=== PATIENT | female | born 1985 | race Caucasian/White ===

== ENCOUNTER 2019-08-30 14:04 | Emergency (ER) | payer OTHER ==
[~2019-08-30] VITALS: Ht 170.1 cm; Wt 81.6 kg
[~2019-08-30 14:04] MED LIST: ANAPROX DS550 MG PO; AVPAK AZITHROM250 M1 PO; BACTRIM DS 8001 TA1 PO; CIPRO500 MG PO; CLARITIN10 MG PO; DOXYCYCLINE MO100 MG PO; FLONASE ALLERG9.9 ML NAS; Motrin,Rufen800 MG PO; PREDNISONE10 MG PO; PROZAC40 M1 PO; PYRIDIUM200 M1 PO; ROBITUSSIN DM 105 ML PO; SERTRALINE HYDR25 MG PO; SERTRALINE HYDR50 MG PO; ULTRAM50 MG PO; VICODIN 5/500 505 MG PO; ZOFRAN ODT4 MG SL; ZOFRAN4 MG PO; ZOLOFT50 MG PO
[2019-08-30] MEDS ORDERED: IBUPROFEN600 MG PO ×2 (15:19→16:26)
[2019-08-30] MEDS ORDERED: TRAMADOL HCL50 MG PO (16:26)
== END 2019-08-30 16:43 | disposition home or self-care (01) ==
LOC: ED 14:04
DX: S92.511A Displaced fracture of proximal phalanx of right lesser toe(s), initial encounter for closed fracture (principal); F41.9 Anxiety disorder, unspecified; F32.9 Major depressive disorder, single episode, unspecified; Z88.8 Allergy status to other drugs, medicaments and biological substances; Z79.899 Other long term (current) drug therapy; W22.8XXA Striking against or struck by other objects, initial encounter; Y93.89 Activity, other specified; Y92.89 Other specified places as the place of occurrence of the external cause; Y99.8 Other external cause status

== ENCOUNTER 2019-09-19 21:48 | Emergency (ER) | payer OTHER ==
[~2019-09-19] VITALS: Ht 170.1 cm; Wt 79.4 kg
[~2019-09-19 21:48] MED LIST changes: +IBUPROFEN600 MG PO; +TRAMADOL HCL50 MG PO
[2019-09-19 22:27] LABS: BASO # 0.1 10*3/uL (0.0-0.1); BASO % 0.5 % (0.0-1.0); EOS # 0.1 10*3/uL (0.0-0.4); EOS % 0.6 % (1.0-4.0); HEMATOCRIT 36.6 % (37.0-47.0); LYMPH # 1.8 10*3/uL (1.3-4.4); LYMPH % 16.3 % (27.0-41.0); MEAN CELL VOLUME 90.8 fl (81.0-99.0); MEAN CORPUSCULAR HGB CONC 35.2 g/dl (33.0-37.0); MEAN PLATELET VOLUME 10.3 fl (9.6-12.3); MONO # 0.6 10*3/uL (0.1-1.0); MONO % 5.7 % (3.0-9.0); NEUT # 8.2 10*3/uL (2.3-7.9); NEUT % 76.5 % (47.0-73.0); PLATELET COUNT AUTOMATED 303 10*3/uL (130-400); RED BLOOD COUNT 4.03 10*6/uL (4.10-5.10); RED CELL DISTRI WIDTH 13.1 % (0-14.5); WHITE BLOOD COUNT 10.7 10*3/uL (4.8-10.8)
[2019-09-19 22:36] LABS: ACT PARTIAL THROMBO TIME 22.2 SECONDS (20.0-32.1)
[2019-09-19 22:41] LABS: ALKALINE PHOSPHATASE 60 U/L (45-117); BUN 18 mg/dl (7-24); CHLORIDE 110 mmol/L (98-107); CREATININE 1.04 mg/dL (0.55-1.02); LIPASE 69 U/L (73-393); POTASSIUM 3.7 mmol/L (3.5-5.1); SGOT/AST 19 IU/L (3-35); SGPT/ALT 19 U/L (12-78); SODIUM 139 mmol/L (136-145); TOTAL PROTEIN 7.9 gm/dL (6.4-8.2)
[2019-09-20] MEDS ORDERED: PHENERGAN25 M3 PO (00:56)
== END 2019-09-20 02:40 | disposition home or self-care (01) ==
LOC: ED 21:48
PROVIDERS: Nurse Practitioner Family
DX: A08.4 Viral intestinal infection, unspecified (principal); F17.200 Nicotine dependence, unspecified, uncomplicated; Z88.8 Allergy status to other drugs, medicaments and biological substances; Z79.899 Other long term (current) drug therapy

== ENCOUNTER 2019-11-10 20:28 | Emergency (ER) | payer OTHER ==
[~2019-11-10] VITALS: Ht 170.1 cm; Wt 77.1 kg
[~2019-11-10 20:28] MED LIST changes: +PHENERGAN25 M3 PO
[2019-11-10 21:27] LABS: BASO # 0.1 10*3/uL (0.0-0.1); BASO % 0.3 % (0.0-1.0); EOS % 0.1 % (1.0-4.0); HEMATOCRIT 37.8 % (37.0-47.0); LYMPH # 1.5 10*3/uL (1.3-4.4); MEAN CELL VOLUME 94.3 fl (81.0-99.0); MEAN CORPUSCULAR HGB 31.9 pg (27.0-31.0); MEAN CORPUSCULAR HGB CONC 33.9 g/dl (33.0-37.0); MEAN PLATELET VOLUME 10.6 fl (9.6-12.3); MONO # 0.5 10*3/uL (0.1-1.0); MONO % 3.2 % (3.0-9.0); NEUT # 14.3 10*3/uL (2.3-7.9); PLATELET COUNT AUTOMATED 298 10*3/uL (130-400); RED BLOOD COUNT 4.01 10*6/uL (4.10-5.10); WHITE BLOOD COUNT 16.4 10*3/uL (4.8-10.8)
[2019-11-10 21:33] LABS: BILIRUBIN NEGATIVE (NEGATIVE); BLOOD NEGATIVE (NEGATIVE); CLARITY CLEAR (CLEAR); COLOR YELLOW (YELLOW); GLUCOSE NEGATIVE (NEGATIVE); KETONE 3+ (NEGATIVE); PH 8.5 (5.0-9.0)
[2019-11-10 21:34] LABS: BACTERIA 1+; LEUKO ESTERASE NEGATIVE (NEGATIVE); NITRITE NEGATIVE (NEGATIVE); RBC 0-2 rbc/hpf (0-2); UROBILINOGEN < 0.2 E.U./dl (0.2-1.0)
[2019-11-10 21:43] LABS: ALBUMIN 3.9 gm/dl (3.1-4.5); ALKALINE PHOSPHATASE 61 U/L (45-117); BUN 10 mg/dl (7-24); CHLORIDE 110 mmol/L (98-107); CREATININE 1.04 mg/dL (0.55-1.02); LIPASE 57 U/L (73-393); POTASSIUM 3.7 mmol/L (3.5-5.1); SGOT/AST 9 IU/L (3-35); SGPT/ALT 14 U/L (12-78); SODIUM 140 mmol/L (136-145); TOTAL PROTEIN 7.7 gm/dL (6.4-8.2)
[2019-11-11 01:10] LABS: URINE AMPHETAMINES < 1000 (1000ng/ml); URINE BARBITURATES < 200 (200ng/ml); URINE BENZODIAZEPINES < 200 (200ng/ml); URINE CANNABINOIDS (THC) > 50 (50ng/ml); URINE COCAINE > 300 (300ng/ml); URINE METHADONE < 300 (300ng/ml); URINE OPIATES < 300 (300ng/ml)
[2019-11-11 01:11] LABS: URINE PHENCYCLIDINE < 25 (25ng/ml)
== END 2019-11-11 01:10 | disposition home or self-care (01) ==
LOC: ED 20:28
PROVIDERS: Emergency Medicine
DX: R11.10 Vomiting, unspecified (principal); F32.9 Major depressive disorder, single episode, unspecified; F41.9 Anxiety disorder, unspecified; F17.200 Nicotine dependence, unspecified, uncomplicated; Z79.899 Other long term (current) drug therapy

== ENCOUNTER 2019-12-16 03:43 | Observation (INO) | payer OTHER ==
[~2019-12-16] VITALS: Ht 170.1 cm; Wt 75.3 kg
[2019-12-16 03:47] VITALS: BP 159/82
[2019-12-16 04:17] LABS: BASO # 0.1 10*3/uL (0.0-0.1); BASO % 0.5 % (0.0-1.0); EOS # 0.1 10*3/uL (0.0-0.4); EOS % 0.3 % (1.0-4.0); HEMATOCRIT 41.5 % (37.0-47.0); LYMPH % 14.4 % (27.0-41.0); MEAN CELL VOLUME 95.4 fl (81.0-99.0); MEAN CORPUSCULAR HGB 31.7 pg (27.0-31.0); MEAN CORPUSCULAR HGB CONC 33.3 g/dl (33.0-37.0); MEAN PLATELET VOLUME 11.2 fl (9.6-12.3); MONO # 1.5 10*3/uL (0.1-1.0); MONO % 6.9 % (3.0-9.0); NEUT # 16.2 10*3/uL (2.3-7.9); NEUT % 77.5 % (47.0-73.0); PLATELET COUNT AUTOMATED 276 10*3/uL (130-400); RED BLOOD COUNT 4.35 10*6/uL (4.10-5.10); RED CELL DISTRI WIDTH 13.1 % (0-14.5)
[2019-12-16 04:32] LABS: ALBUMIN 4.1 gm/dl (3.1-4.5); CREATININE 1.25 mg/dL (0.55-1.02); POTASSIUM 3.2 mmol/L (3.5-5.1); TOTAL PROTEIN 8.2 gm/dL (6.4-8.2)
[2019-12-16 04:43] LABS: BILIRUBIN NEGATIVE (NEGATIVE); BLOOD TRACE-INTACT (NEGATIVE); CLARITY SL CLOUDY (CLEAR); COLOR YELLOW (YELLOW); GLUCOSE NEGATIVE (NEGATIVE); KETONE NEGATIVE (NEGATIVE); LEUKO ESTERASE NEGATIVE (NEGATIVE); NITRITE NEGATIVE (NEGATIVE); UROBILINOGEN 0.2 E.U./dl (0.2-1.0)
[2019-12-16 04:48] LABS: EPITHELIAL CELLS TNTC; URINE AMPHETAMINES < 1000 (1000ng/ml); URINE BARBITURATES < 200 (200ng/ml); URINE BENZODIAZEPINES < 200 (200ng/ml); URINE CANNABINOIDS (THC) > 50 (50ng/ml); URINE COCAINE > 300 (300ng/ml); URINE METHADONE < 300 (300ng/ml); URINE OPIATES < 300 (300ng/ml)
[2019-12-16 04:49] LABS: URINE PHENCYCLIDINE < 25 (25ng/ml)
--- NOTE | 2019-12-16 05:37 | NUR ---
PT RESTING COMFORTABLY ON COT AT THIS TIME. NO DISTRESS NOTED. WILL CONTINUE TO MONITOR.
--- NOTE | 2019-12-16 06:07 | NUR ---
PT VOMITING AT THIS TIME. DR FERNANDEZ TO ADMIT PT. PT DENIES WOUNDS AT THIS TIME. UNABLE TO GET GOOD EVALUATION D/T VOMITING.
[2019-12-16 06:14] VITALS: BP 160/79
--- NOTE | 2019-12-16 07:09 | NUR ---
REPORT FROM [facility], [place]
--- NOTE | 2019-12-16 07:40 | NUR ---
Time: 739 A 34 year old FEMALE admitted to under services of MARCELO GRANT DO. Pt. arrived via bed from ER. Chief complaint: VOMITING SINCE SUNDAY. NIYAH DELUNA
--- NOTE | 2019-12-16 07:51 | NUR ---
PT MEDICATED WITH PHENERGAN AT THIS TIME PER ORDER FOR COMPLAINTS OF NAUSEA/VOMITING. WILL MONITOR.
--- NOTE | 2019-12-16 08:51 | NUR ---
PER PATIENT, PRN MEDICATION HAS BEEN EFFECTIVE.
--- NOTE | 2019-12-16 09:00 | NUR ---
[employer] [facility] in to talk to patient. Patient states lives at home with fiance and children. There are no steps in the home. Physician: khalif nino [facility] Home health services: none Patient's level of ADLs: INDEPENDENT Patient has working utilities: all working DME: none Follow-up physician's appointment after d/c: will be made by hospitalist nurse director upon discharge Does patient want to access PORTAL?: no Discharge plan discussed with patient, she lives at home with family, is independent in adls and ambulation, drives, she states she will return home when discharged and denies any home needs, case management will follow. EDGAR FRANK
--- NOTE | 2019-12-16 09:30 | NUR ---
SPOKE WITH AT THIS TIME AND ORDER OBTAINED FOR SHAUNA MIKE.
[2019-12-16] MEDS ORDERED: PROZAC20 MG PO (09:40)
[2019-12-16 12:00] VITALS: BP 135/66
--- NOTE | 2019-12-16 15:28 | NUR ---
PT REQUESTING NAUSEA MEDICATION ; GIVEN PHENERGAN PER ORDER. WILL MONITOR FOR EFFECTIVENESS.
[2019-12-16 16:00] VITALS: BP 138/96
--- NOTE | 2019-12-16 16:28 | NUR ---
PER PATIENT, PHENERGAN WAS EFFECTIVE. CALL LIGHT IN REACH.
[2019-12-16 20:00] VITALS: BP 131/72
--- NOTE | 2019-12-16 22:17 | NUR ---
PT. GIVEN ZOFRAN ORDERED AT 2053 FOR COMPLAINTS OF NAUSEA, PT. STATED EFFECTIVE. ERIC DENISE RN
[2019-12-17] VITALS: BP 102/57
[2019-12-17 06:25] LABS: BASO % 0.3 % (0.0-1.0); EOS # 0.1 10*3/uL (0.0-0.4); EOS % 0.7 % (1.0-4.0); HEMATOCRIT 36.5 % (37.0-47.0); LYMPH # 2.7 10*3/uL (1.3-4.4); LYMPH % 26.7 % (27.0-41.0); MEAN CELL VOLUME 96.3 fl (81.0-99.0); MEAN CORPUSCULAR HGB 32.2 pg (27.0-31.0); MEAN CORPUSCULAR HGB CONC 33.4 g/dl (33.0-37.0); MEAN PLATELET VOLUME 10.4 fl (9.6-12.3); MONO # 0.9 10*3/uL (0.1-1.0); MONO % 9.2 % (3.0-9.0); NEUT # 6.3 10*3/uL (2.3-7.9); NEUT % 62.9 % (47.0-73.0); PLATELET COUNT AUTOMATED 241 10*3/uL (130-400); RED BLOOD COUNT 3.79 10*6/uL (4.10-5.10)
[2019-12-17 06:45] LABS: ALBUMIN 3.2 gm/dl (3.1-4.5); BUN 18 mg/dl (7-24); CHLORIDE 110 mmol/L (98-107); POTASSIUM 3.7 mmol/L (3.5-5.1); SGOT/AST 14 IU/L (3-35); SODIUM 139 mmol/L (136-145)
[2019-12-17 06:57] LABS: ALKALINE PHOSPHATASE 59 U/L (45-117); SGPT/ALT 19 U/L (12-78); THYROID STIM HORMONE (HS) 0.333 uIU/ml (0.358-4.75); TOTAL PROTEIN 6.7 gm/dL (6.4-8.2)
[2019-12-17 08:00] VITALS: BP 119/80
--- NOTE | 2019-12-17 09:00 | NUR ---
case management visits with patient, she states she will return home when discharged and denies any home needs
--- NOTE | 2019-12-17 09:52 | NUR ---
pt medicated with prn zofran after one episode of nausea with vomitting after trying clear liquids for breakfast.
--- NOTE | 2019-12-17 10:40 | NUR ---
Pt. expressed wish to go to another hospital/ Shaking and weeping, face is flushed. When asked if she would want to wait and first speak to her physician she stated " I just want to go to another hospital " Syd Lopes was notified of pt. wishes and stated she would like to see her before discharge.
--- NOTE | 2019-12-17 10:54 | NUR ---
Medicated for persistant Nausea w/ vomiting. Syd Lopes in to [facility] and pt. is agreeable to remain in this hospital.
--- NOTE | 2019-12-17 14:06 | NUR ---
PT LEFT AMA.
[2019-12-17] MEDS ORDERED: ZOFRAN4 MG PO (15:21)
[2019-12-17] MEDS ORDERED: PROTONIX40 MG PO (15:21)
[2019-12-17] MEDS ORDERED: CARAFATE1 GM/10 ML PO (15:21)
== END 2019-12-17 14:06 | disposition left against medical advice (07) ==
LOC: ED 03:43 → 4E 06:14 → EDHOLD 06:14 → 4E 06:14
PROVIDERS: Emergency Medicine; Student in an Organized Health Care Education/Training Program; ADMIT Student in an Organized Health Care Education/Training Program
DX: R11.2 Nausea with vomiting, unspecified (principal); E86.0 Dehydration; N17.0 Acute kidney failure with tubular necrosis; E87.2 Acidosis; D72.829 Elevated white blood cell count, unspecified; R03.0 Elevated blood-pressure reading, without diagnosis of hypertension; K29.70 Gastritis, unspecified, without bleeding; R73.9 Hyperglycemia, unspecified; F14.90 Cocaine use, unspecified, uncomplicated; F12.90 Cannabis use, unspecified, uncomplicated; F17.200 Nicotine dependence, unspecified, uncomplicated

== ENCOUNTER 2020-12-18 23:19 | Emergency (ER) | payer OTHER ==
[~2020-12-18] VITALS: Ht 170.1 cm; Wt 77.1 kg
[~2020-12-18 23:19] MED LIST changes: +CARAFATE1 GM/10 ML PO; +PROTONIX40 MG PO; +PROZAC20 MG PO
[2020-12-19] MEDS ORDERED: CYCLOBENZAPRINE10 MG PO (02:29)
[2020-12-19] MEDS ORDERED: NAPROSYN500 MG PO (02:29)
== END 2020-12-19 02:36 | disposition home or self-care (01) ==
LOC: ED 23:19
DX: S16.1XXA Strain of muscle, fascia and tendon at neck level, initial encounter (principal); M75.51 Bursitis of right shoulder; F17.200 Nicotine dependence, unspecified, uncomplicated; Z79.899 Other long term (current) drug therapy; Z87.442 Personal history of urinary calculi; Z98.890 Other specified postprocedural states; X50.1XXA Overexertion from prolonged static or awkward postures, initial encounter; Y93.89 Activity, other specified; Y92.89 Other specified places as the place of occurrence of the external cause; Y99.8 Other external cause status

== ENCOUNTER 2021-04-25 12:08 | Emergency (ER) | payer OTHER ==
[~2021-04-25] VITALS: Wt 72.1 kg
[~2021-04-25 12:08] MED LIST changes: +CYCLOBENZAPRINE10 MG PO; +NAPROSYN500 MG PO
[2021-04-25 13:03] LABS: BASO % 0.4 % (0.0-1.0); EOS % 0.5 % (1.0-4.0); HEMATOCRIT 40.3 % (37.0-47.0); LYMPH # 1.1 10*3/uL (1.3-4.4); LYMPH % 20.1 % (27.0-41.0); MEAN CELL VOLUME 93.5 fl (81.0-99.0); MEAN CORPUSCULAR HGB 31.6 pg (27.0-31.0); MEAN CORPUSCULAR HGB CONC 33.7 g/dl (33.0-37.0); MEAN PLATELET VOLUME 10.9 fl (9.6-12.3); MONO # 0.4 10*3/uL (0.1-1.0); MONO % 6.6 % (3.0-9.0); NEUT # 3.9 10*3/uL (2.3-7.9); PLATELET COUNT AUTOMATED 246 10*3/uL (130-400); RED BLOOD COUNT 4.31 10*6/uL (4.10-5.10); RED CELL DISTRI WIDTH 12.6 % (0-14.5); WHITE BLOOD COUNT 5.5 10*3/uL (4.8-10.8)
[2021-04-25 13:18] LABS: ALBUMIN 3.5 gm/dl (3.1-4.5); ALKALINE PHOSPHATASE 64 U/L (45-117); BUN 15 mg/dl (7-24); CHLORIDE 109 mmol/L (98-107); CREATININE 0.96 mg/dL (0.55-1.02); POTASSIUM 3.9 mmol/L (3.5-5.1); SGOT/AST 11 IU/L (3-35); SGPT/ALT 20 U/L (12-78); SODIUM 138 mmol/L (136-145); TOTAL PROTEIN 7.6 gm/dL (6.4-8.2)
== END 2021-04-25 14:10 | disposition short-term general hospital (02) ==
LOC: ED 12:08
PROVIDERS: Nurse Practitioner Family
DX: U07.1 COVID-19 (principal)

== ENCOUNTER 2021-06-17 11:37 | Emergency (ER) | payer OTHER ==
[~2021-06-17] VITALS: Ht 170.1 cm; Wt 68.0 kg
[2021-06-17 12:03] LABS: BILIRUBIN Negative (Negative); BLOOD Trace-Lysed (Negative); CLARITY Turbid (Clear); COLOR Yellow (Yellow); GLUCOSE Negative (Negative); KETONE 1+ (Negative); LEUKO ESTERASE Negative (Negative); NITRITE Negative (Negative)
[2021-06-17 12:21] LABS: BACTERIA TRACE; RBC 0-2 rbc/hpf (0-2)
[2021-06-17 12:55] LABS: BASO # 0.1 10*3/uL (0.0-0.1); BASO % 0.5 % (0.0-1.0); EOS # 0.1 10*3/uL (0.0-0.4); EOS % 0.9 % (1.0-4.0); HEMATOCRIT 40.6 % (37.0-47.0); LYMPH # 1.7 10*3/uL (1.3-4.4); LYMPH % 16.1 % (27.0-41.0); MEAN CELL VOLUME 92.1 fl (81.0-99.0); MEAN CORPUSCULAR HGB 31.7 pg (27.0-31.0); MEAN CORPUSCULAR HGB CONC 34.5 g/dl (33.0-37.0); MEAN PLATELET VOLUME 10.8 fl (9.6-12.3); MONO # 0.5 10*3/uL (0.1-1.0); MONO % 4.6 % (3.0-9.0); NEUT # 8.2 10*3/uL (2.3-7.9); NEUT % 77.6 % (47.0-73.0); PLATELET COUNT AUTOMATED 313 10*3/uL (130-400); RED BLOOD COUNT 4.41 10*6/uL (4.10-5.10); RED CELL DISTRI WIDTH 12.8 % (0-14.5); WHITE BLOOD COUNT 10.6 10*3/uL (4.8-10.8)
[2021-06-17 13:21] LABS: ALBUMIN 3.8 gm/dl (3.1-4.5); ALKALINE PHOSPHATASE 67 U/L (45-117); BUN 12 mg/dl (7-24); CHLORIDE 110 mmol/L (98-107); CREATININE 0.83 mg/dL (0.55-1.02); POTASSIUM 4.2 mmol/L (3.5-5.1); SGOT/AST 9 IU/L (3-35); SGPT/ALT 14 U/L (12-78); SODIUM 139 mmol/L (136-145); TOTAL PROTEIN 7.8 gm/dL (6.4-8.2)
== END 2021-06-17 15:14 | disposition home or self-care (01) ==
LOC: ED 11:37
PROVIDERS: Emergency Medicine; Nurse Practitioner Family
DX: M54.50 Low back pain, unspecified (principal); F17.200 Nicotine dependence, unspecified, uncomplicated; Z79.899 Other long term (current) drug therapy; Z98.890 Other specified postprocedural states

== ENCOUNTER 2021-10-13 18:37 | Emergency (ER) | payer OTHER ==
[~2021-10-13] VITALS: Ht 175.2 cm; Wt 72.6 kg
[2021-10-13 20:58] LABS: HEMATOCRIT 37.4 % (37.0-47.0); MEAN CELL VOLUME 92.3 fl (81.0-99.0); MEAN CORPUSCULAR HGB 31.9 pg (27.0-31.0); MEAN CORPUSCULAR HGB CONC 34.5 g/dl (33.0-37.0); MEAN PLATELET VOLUME 11.1 fl (9.6-12.3); PLATELET COUNT AUTOMATED 291 10*3/uL (130-400); RED BLOOD COUNT 4.05 10*6/uL (4.10-5.10); RED CELL DISTRI WIDTH 12.8 % (0-14.5); WHITE BLOOD COUNT 13.3 10*3/uL (4.8-10.8)
[2021-10-13 21:07] LABS: MANUAL DIFF REFLEX YES
[2021-10-13 21:15] LABS: ALKALINE PHOSPHATASE 66 U/L (45-117); BUN 16 mg/dl (7-24); CHLORIDE 113 mmol/L (98-107); LIPASE 56 U/L (73-393); SGOT/AST 10 IU/L (3-35); SGPT/ALT 15 U/L (12-78); SODIUM 143 mmol/L (136-145); TOTAL PROTEIN 7.9 gm/dL (6.4-8.2)
[2021-10-13 21:28] LABS: PLATELET SUFFICIENCY NORMAL (NORMAL); TOTAL CELLS COUNTED 100 #CELLS; TOXIC GRANULATION SLIGHT
[2021-10-13 21:45] LABS: BILIRUBIN Negative (Negative); BLOOD Trace-Lysed (Negative); CLARITY Clear (Clear); COLOR Yellow (Yellow); GLUCOSE Trace (Negative); KETONE 4+ (Negative); LEUKO ESTERASE Negative (Negative); NITRITE Negative (Negative); PH 6.5 (4.5-8.0); SPECIFIC GRAVITY >= 1.030 (1.001-1.030)
[2021-10-13 21:51] LABS: BACTERIA TRACE; MUCOUS 2+; RBC 0-2 rbc/hpf (0-2); WBC 0-2 wbc/hpf (0-5)
[2021-10-13 21:52] LABS: HYALINE CAST 0-2
[2021-10-14] MEDS ORDERED: SERTRALINE HYD100 MG PO (10:41)
[2021-10-14] MEDS ORDERED: OMEPRAZOLE40 MG PO (10:41)
== END 2021-10-14 04:20 | disposition home or self-care (01) ==
LOC: ED 18:37
PROVIDERS: Emergency Medicine
DX: R11.10 Vomiting, unspecified (principal)

== ENCOUNTER 2021-10-14 10:28 | Inpatient (IN) | payer OTHER ==
[2021-10-14] VITALS (11 sets, daily range): BP systolic 113–144; BP diastolic 71–88
[~2021-10-14] VITALS: Ht 175.2 cm; Wt 74.0 kg
[2021-10-14] MEDS ORDERED: SERTRALINE HYD100 MG PO (10:41)
[2021-10-14] MEDS ORDERED: OMEPRAZOLE40 MG PO (10:41)
[2021-10-14 11:12] LABS: BASO % 0.2 % (0.0-1.0); HEMATOCRIT 37.4 % (37.0-47.0); LYMPH # 1.3 10*3/uL (1.3-4.4); MEAN CELL VOLUME 91.2 fl (81.0-99.0); MEAN PLATELET VOLUME 11.1 fl (9.6-12.3); MONO # 1.3 10*3/uL (0.1-1.0); NEUT # 15.3 10*3/uL (2.3-7.9); NEUT % 85.4 % (47.0-73.0); PLATELET COUNT AUTOMATED 325 10*3/uL (130-400); WHITE BLOOD COUNT 17.9 10*3/uL (4.8-10.8)
[2021-10-14 11:37] LABS: ALKALINE PHOSPHATASE 68 U/L (45-117); BUN 19 mg/dl (7-24); CHLORIDE 113 mmol/L (98-107); CREATININE 1.18 mg/dL (0.55-1.02); POTASSIUM 3.6 mmol/L (3.5-5.1); SGOT/AST 13 IU/L (3-35); SGPT/ALT 18 U/L (12-78); SODIUM 143 mmol/L (136-145); TOTAL PROTEIN 8.3 gm/dL (6.4-8.2)
[2021-10-15 06:32] LABS: BUN 16 mg/dl (7-24); CHLORIDE 114 mmol/L (98-107); CHOLESTEROL 109 mg/dL (<200); POTASSIUM 3.8 mmol/L (3.5-5.1); SGOT/AST 57 IU/L (3-35); SODIUM 144 mmol/L (136-145); TOTAL PROTEIN 6.8 gm/dL (6.4-8.2); TRIGLYCERIDES 95 mg/dl (<150)
[2021-10-15 06:40] LABS: ALKALINE PHOSPHATASE 56 U/L (45-117); FREE T4 1.56 ng/dl (0.76-1.46); LDL CHOLESTEROL 49 mg/dL (9-159); SGPT/ALT 56 U/L (12-78)
[2021-10-15 06:51] LABS: BASO % 0.3 % (0.0-1.0); HEMATOCRIT 34.5 % (37.0-47.0); LYMPH # 1.7 10*3/uL (1.3-4.4); LYMPH % 11.2 % (27.0-41.0); MEAN CORPUSCULAR HGB 32.4 pg (27.0-31.0); MEAN CORPUSCULAR HGB CONC 33.6 g/dl (33.0-37.0); MEAN PLATELET VOLUME 11.9 fl (9.6-12.3); MONO # 1.3 10*3/uL (0.1-1.0); MONO % 8.1 % (3.0-9.0); NEUT # 12.4 10*3/uL (2.3-7.9); NEUT % 80.1 % (47.0-73.0); PLATELET COUNT AUTOMATED 240 10*3/uL (130-400); RED BLOOD COUNT 3.58 10*6/uL (4.10-5.10); RED CELL DISTRI WIDTH 13.4 % (0-14.5); WHITE BLOOD COUNT 15.5 10*3/uL (4.8-10.8)
[2021-10-15 06:53] LABS: MEAN CELL VOLUME 96.4 fl (81.0-99.0)
[2021-10-15 07:30] LABS: VITAMIN D, 25-HYDROXY 19.6 ng/mL (30-100)
[2021-10-15 07:52] VITALS: BP 121/68
[2021-10-15 16:00] VITALS: BP 135/81
[2021-10-15 20:00] VITALS: BP 114/77
[2021-10-16] VITALS: BP 113/63
[2021-10-16 06:01] LABS: BUN 9 mg/dl (7-24); CHLORIDE 111 mmol/L (98-107); CREATININE 0.74 mg/dL (0.55-1.02); POTASSIUM 3.2 mmol/L (3.5-5.1); SGOT/AST 45 IU/L (3-35); SGPT/ALT 71 U/L (12-78); SODIUM 140 mmol/L (136-145)
[2021-10-16 06:03] LABS: ALKALINE PHOSPHATASE 53 U/L (45-117); TOTAL PROTEIN 6.2 gm/dL (6.4-8.2)
[2021-10-16 06:41] LABS: BASO % 0.3 % (0.0-1.0); EOS # 0.1 10*3/uL (0.0-0.4); EOS % 0.5 % (1.0-4.0); HEMATOCRIT 31.4 % (37.0-47.0); LYMPH # 1.4 10*3/uL (1.3-4.4); LYMPH % 10.9 % (27.0-41.0); MEAN CORPUSCULAR HGB 31.7 pg (27.0-31.0); MEAN CORPUSCULAR HGB CONC 33.8 g/dl (33.0-37.0); MEAN PLATELET VOLUME 11.9 fl (9.6-12.3); MONO % 7.3 % (3.0-9.0); NEUT # 10.7 10*3/uL (2.3-7.9); NEUT % 80.6 % (47.0-73.0); PLATELET COUNT AUTOMATED 217 10*3/uL (130-400); RED BLOOD COUNT 3.34 10*6/uL (4.10-5.10); RED CELL DISTRI WIDTH 12.8 % (0-14.5); WHITE BLOOD COUNT 13.2 10*3/uL (4.8-10.8)
[2021-10-16 08:00] VITALS: BP 140/80
[2021-10-16] MEDS ORDERED: HYDROCODONE-AC1 EAC1 PO (11:01)
[2021-10-16] MEDS ORDERED: DULCOLAX STOOL100 MG PO (11:01)
[2021-10-16] MEDS ORDERED: ZOFRAN4 MG PO (11:01)
[2021-10-16] MEDS ORDERED: AUGMENTIN 875-875 MG PO (11:01)
[2021-10-16 12:00] VITALS: BP 131/77
== END 2021-10-16 14:15 | disposition home or self-care (01) | DRG 263 ==
LOC: ED 10:28 → EDHOLD 12:42 → 4E 13:54 → 5E 14:12
PROVIDERS: Family Medicine; Registered Nurse; ADMIT Emergency Medicine; ATTEND Emergency Medicine
PROC: 0FT44ZZ Resection of Gallbladder, Percutaneous Endoscopic Approach (ICD-10-PCS; principal; 2021-10-14)
DX: K80.00 Calculus of gallbladder with acute cholecystitis without obstruction (principal); K21.9 Gastro-esophageal reflux disease without esophagitis; N17.0 Acute kidney failure with tubular necrosis; E86.0 Dehydration; F12.90 Cannabis use, unspecified, uncomplicated; E87.8 Other disorders of electrolyte and fluid balance, not elsewhere classified; F41.1 Generalized anxiety disorder; Z82.49 Family history of ischemic heart disease and other diseases of the circulatory system; Z79.899 Other long term (current) drug therapy; Z91.030 Bee allergy status; G89.18 Other acute postprocedural pain

== ENCOUNTER 2021-12-01 21:03 | Emergency (ER) | payer OTHER ==
[~2021-12-01] VITALS: Ht 165.1 cm; Wt 65.8 kg
[~2021-12-01 21:03] MED LIST changes: +AUGMENTIN 875-875 MG PO; +DULCOLAX STOOL100 MG PO; +HYDROCODONE-AC1 EAC1 PO; +OMEPRAZOLE40 MG PO; +SERTRALINE HYD100 MG PO
[2021-12-01 21:50] LABS: BASO # 0.1 10*3/uL (0.0-0.1); BASO % 0.4 % (0.0-1.0); EOS % 0.2 % (1.0-4.0); HEMATOCRIT 38.1 % (37.0-47.0); LYMPH # 1.9 10*3/uL (1.3-4.4); LYMPH % 11.6 % (27.0-41.0); MEAN CELL VOLUME 94.1 fl (81.0-99.0); MEAN CORPUSCULAR HGB 31.9 pg (27.0-31.0); MEAN CORPUSCULAR HGB CONC 33.9 g/dl (33.0-37.0); MEAN PLATELET VOLUME 11.3 fl (9.6-12.3); MONO # 0.5 10*3/uL (0.1-1.0); MONO % 2.9 % (3.0-9.0); NEUT # 13.6 10*3/uL (2.3-7.9); NEUT % 84.5 % (47.0-73.0); PLATELET COUNT AUTOMATED 303 10*3/uL (130-400); RED BLOOD COUNT 4.05 10*6/uL (4.10-5.10); RED CELL DISTRI WIDTH 13.4 % (0-14.5); WHITE BLOOD COUNT 16.1 10*3/uL (4.8-10.8)
[2021-12-01 22:10] LABS: ALKALINE PHOSPHATASE 77 U/L (45-117); BUN 16 mg/dl (7-24); CHLORIDE 111 mmol/L (98-107); CREATININE 0.96 mg/dL (0.55-1.02); LIPASE 94 U/L (73-393); POTASSIUM 3.5 mmol/L (3.5-5.1); SGOT/AST 10 IU/L (3-35); SGPT/ALT 11 U/L (12-78); SODIUM 140 mmol/L (136-145); TOTAL PROTEIN 7.8 gm/dL (6.4-8.2)
[2021-12-01 22:31] LABS: BILIRUBIN Negative (Negative); BLOOD Negative (Negative); CLARITY Cloudy (Clear); COLOR Yellow (Yellow); GLUCOSE Negative (Negative); KETONE 3+ (Negative); LEUKO ESTERASE Negative (Negative); NITRITE Negative (Negative); PH 5.5 (4.5-8.0); SPECIFIC GRAVITY >= 1.030 (1.001-1.030)
[2021-12-01 22:44] LABS: EPITHELIAL CELLS 41-50; MUCOUS 1+; WBC 0-2 wbc/hpf (0-5)
[2021-12-02] MEDS ORDERED: PROMETHAZINE25 M1 PO (03:04)
[2021-12-02] MEDS ORDERED: Ondansetron4 MG PO (03:04)
== END 2021-12-02 03:35 | disposition home or self-care (01) ==
LOC: ED 21:03
PROVIDERS: Emergency Medicine
DX: R11.2 Nausea with vomiting, unspecified (principal); Z20.822 Contact with and (suspected) exposure to COVID-19; Z91.030 Bee allergy status; Z79.899 Other long term (current) drug therapy; Z90.49 Acquired absence of other specified parts of digestive tract; Z98.51 Tubal ligation status; Z98.890 Other specified postprocedural states; F17.200 Nicotine dependence, unspecified, uncomplicated

== ENCOUNTER 2022-07-14 18:54 | Emergency (ER) | payer OTHER ==
[~2022-07-14] VITALS: Ht 175.2 cm; Wt 68.0 kg
[~2022-07-14 18:54] MED LIST changes: +Ondansetron4 MG PO; +PROMETHAZINE25 M1 PO
[2022-07-14 19:44] LABS: BASO % 0.2 % (0.0-1.0); EOS # 0.1 10*3/uL (0.0-0.4); EOS % 0.3 % (1.0-4.0); HEMATOCRIT 44.3 % (37.0-47.0); LYMPH % 6.7 % (27.0-41.0); MEAN CELL VOLUME 94.1 fl (81.0-99.0); MEAN CORPUSCULAR HGB 32.3 pg (27.0-31.0); MEAN CORPUSCULAR HGB CONC 34.3 g/dl (33.0-37.0); MEAN PLATELET VOLUME 10.1 fl (9.6-12.3); MONO # 0.5 10*3/uL (0.1-1.0); MONO % 3.1 % (3.0-9.0); NEUT # 13.7 10*3/uL (2.3-7.9); NEUT % 89.4 % (47.0-73.0); PLATELET COUNT AUTOMATED 350 10*3/uL (130-400); RED BLOOD COUNT 4.71 10*6/uL (4.10-5.10); RED CELL DISTRI WIDTH 12.8 % (0-14.5); WHITE BLOOD COUNT 15.3 10*3/uL (4.8-10.8)
[2022-07-14 20:03] LABS: ALKALINE PHOSPHATASE 71 U/L (46-116); BUN 12 mg/dl (9-23); CHLORIDE 109 mmol/L (98-107); LIPASE 28 U/L (12-53); SGPT/ALT 8 U/L (10-49); TOTAL PROTEIN 7.5 gm/dL (6.0-8.0)
[2022-07-15] MEDS ORDERED: FLAGYL 375375 MG PO (00:05)
[2022-07-15] MEDS ORDERED: CIPRO500 MG PO (00:05)
== END 2022-07-15 00:11 | disposition home or self-care (01) ==
LOC: ED 18:54
PROVIDERS: Physician Assistant
DX: K52.9 Noninfective gastroenteritis and colitis, unspecified (principal); F32.A Depression, unspecified; Z91.030 Bee allergy status; Z91.018 Allergy to other foods; Z90.49 Acquired absence of other specified parts of digestive tract; Z98.51 Tubal ligation status; Z98.890 Other specified postprocedural states

== ENCOUNTER 2023-11-11 15:00 | Emergency (ER) | payer SELFPAY ==
[~2023-11-11] VITALS: Ht 170.1 cm; Wt 72.6 kg
[~2023-11-11 15:00] MED LIST changes: +FLAGYL 375375 MG PO
[2023-11-11] MEDS ORDERED: Acetaminophen/Oxycodone 5 MG/325 MG TABLET PO ONE (15:20)
[2023-11-11] MEDS ORDERED: LORazepam 1 MG TAB PO ONE (15:20)
[2023-11-11] MEDS ORDERED: MELOXICAM15 MG PO (15:23)
[2023-11-11] MEDS ORDERED: CYCLOBENZAPRINE10 MG PO (15:23)
== END 2023-11-11 15:45 | disposition home or self-care (01) ==
LOC: ED 15:00
DX: S46.911A Strain of unspecified muscle, fascia and tendon at shoulder and upper arm level, right arm, initial encounter (principal); F32.A Depression, unspecified; F41.9 Anxiety disorder, unspecified; Z91.030 Bee allergy status; Z91.018 Allergy to other foods; Z90.49 Acquired absence of other specified parts of digestive tract; Z98.51 Tubal ligation status; Z98.890 Other specified postprocedural states; Z72.0 Tobacco use; X50.0XXA Overexertion from strenuous movement or load, initial encounter; Y93.89 Activity, other specified; Y92.89 Other specified places as the place of occurrence of the external cause; Y99.8 Other external cause status

== ENCOUNTER 2024-06-13 06:12 | Emergency (ER) | payer OTHER ==
[~2024-06-13] VITALS: Ht 170.1 cm; Wt 72.6 kg
[~2024-06-13 06:12] MED LIST changes: +MELOXICAM15 MG PO
[2024-06-13] MEDS ORDERED: SODIUM CHLORIDE 0.9% 1,000 ML IV ONE (06:25)
[2024-06-13] MEDS ORDERED: Ondansetron Hydrochloride 4 MG/2 ML VIAL IV ONE ×2 (06:25→08:50)
[2024-06-13 06:34] LABS: BASO % 0.3 % (0.0-1.0); EOS % 0.2 % (1.0-4.0); MEAN CELL VOLUME 91.7 fl (81.0-99.0); MEAN CORPUSCULAR HGB CONC 34.9 g/dl (33.0-37.0); MEAN PLATELET VOLUME 10.2 fl (9.6-12.3); MONO # 1.2 10*3/uL (0.1-1.0); NEUT # 8.7 10*3/uL (2.3-7.9); NEUT % 72.4 % (47.0-73.0); PLATELET COUNT AUTOMATED 349 10*3/uL (130-400); RED BLOOD COUNT 4.69 10*6/uL (4.10-5.10); RED CELL DISTRI WIDTH 12.3 % (0-14.5)
[2024-06-13 06:55] LABS: POTASSIUM 3.6 mmol/L (3.4-5.1); TOTAL PROTEIN 8.1 gm/dL (6.0-8.0)
[2024-06-13 07:10] LABS: BILIRUBIN Negative (Negative); BLOOD Trace-Lysed (Negative); CLARITY Turbid (Clear); COLOR Dark Yellow (Yellow); GLUCOSE Negative (Negative); KETONE 1+ (Negative); LEUKO ESTERASE Negative (Negative); NITRITE Negative (Negative); PH 5.5 (4.5-8.0); SPECIFIC GRAVITY >= 1.030 (1.001-1.030)
[2024-06-13 07:28] LABS: BACTERIA 3+; EPITHELIAL CELLS 21-30; HYALINE CAST 0-2; MUCOUS 1+; WBC 0-2 wbc/hpf (0-5)
[2024-06-13 07:36] LABS: URINE AMPHETAMINES Negative (1000ng/ml); URINE BARBITURATES Negative (200ng/ml); URINE BENZODIAZEPINES Negative (200ng/ml); URINE CANNABINOIDS (THC) Positive (50ng/ml); URINE COCAINE Positive (300ng/ml); URINE METHADONE Negative (300ng/ml); URINE OPIATES Negative (300ng/ml); URINE PHENCYCLIDINE Negative (25ng/ml)
[2024-06-13] MEDS ORDERED: diphenhydrAMINE hydrochloride 50 MG/ML VIAL IV ONE (07:40)
[2024-06-13] MEDS ORDERED: Metoclopramide Hydrochloride 10 MG/2 ML VIAL IV ONE (07:40)
[2024-06-13] MEDS ORDERED: FAMOTIDINE 50 ML IV ONE (07:40)
[2024-06-13] MEDS ORDERED: Ceftriaxone Sodium 1 GM/10 ML SYR IV ONE (07:55)
[2024-06-13] MEDS ORDERED: CRANBERRY400 M2 PO (08:15)
[2024-06-13] MEDS ORDERED: Promethazine Hydrochloride 25 MG/ML VIAL IV ONE (08:50)
== END 2024-06-13 09:18 | disposition home or self-care (01) ==
LOC: ED 06:12
PROVIDERS: Internal Medicine
DX: R10.84 Generalized abdominal pain (principal); R11.2 Nausea with vomiting, unspecified; F14.10 Cocaine abuse, uncomplicated; F12.10 Cannabis abuse, uncomplicated; Z20.822 Contact with and (suspected) exposure to COVID-19; Z91.030 Bee allergy status; Z79.2 Long term (current) use of antibiotics; Z79.899 Other long term (current) drug therapy; Z90.49 Acquired absence of other specified parts of digestive tract; Z98.890 Other specified postprocedural states; Z98.51 Tubal ligation status; Z87.891 Personal history of nicotine dependence

== ENCOUNTER → 2024-12-17 | Outpatient (CLI) | payer OTHER ==
[~2024-12-17] MED LIST changes: +CRANBERRY400 M2 PO
== END | disposition home or self-care (01) ==
LOC: MAMMO 09:21
PROVIDERS: ATTEND Nurse Practitioner Women's Health
DX: Z12.31 Encounter for screening mammogram for malignant neoplasm of breast (principal); R92.333 Mammographic heterogeneous density, bilateral breasts; N92.0 Excessive and frequent menstruation with regular cycle

== ENCOUNTER 2024-12-22 16:21 | Emergency (ER) | payer OTHER ==
[~2024-12-22] VITALS: Wt 72.6 kg
== END 2024-12-22 18:06 | disposition home or self-care (01) ==
LOC: ED 16:21
DX: Z01.30 Encounter for examination of blood pressure without abnormal findings (principal); R07.89 Other chest pain; F17.210 Nicotine dependence, cigarettes, uncomplicated; F41.9 Anxiety disorder, unspecified; F32.A Depression, unspecified; Z98.51 Tubal ligation status; Z98.890 Other specified postprocedural states; Z90.49 Acquired absence of other specified parts of digestive tract; Z91.030 Bee allergy status